=== PATIENT | male | born 1985 | race Caucasian/White ===

== ENCOUNTER → 2017-09-28 15:56 | Outpatient (CLI) | payer OTHER, SELFPAY | PROVIDERS: PCP Physician Assistant; Visit Provider Urology | DX: Z53.9 Procedure and treatment not carried out, unspecified reason (principal) ==

== ENCOUNTER → 2018-08-03 10:16 | Outpatient (CLI) | payer OTHER, SELFPAY ==
[2018-08-03 11:13] LABS: Add Manual Diff / Slide Review NO; Basophils Absolute Auto 0 /uL (0-100); Basophils Percent Auto 0.6 % (0-2); Eosinophils Absolute Auto 100 /uL (0-450); Eosinophils Percent Auto 1.1 % (2-4); Hematocrit 46.1 % (41-53); Hemoglobin 15.8 g/dL (13.5-17.5); Lymphocytes Absolute Auto 2000 /uL (1100-4500); Lymphocytes Percent Auto 33.8 % (25-40); Mean Corpuscular HGB Conc 34.3 % (30-36); Mean Corpuscular Hemoglobin 30.3 PG (26-34); Mean Corpuscular Volume 88.3 fL (80-100); Monocytes Absolute Auto 600 /uL (0-900); Monocytes Percent Auto 9.6 % (3-14); Neutrophils Absolute Auto 3300 /uL (1500-7000); Neutrophils Percent Auto 54.9 % (50-75); Platelet Count 205 X10^3/uL (150-400); Red Blood Cell Count 5.22 X10^6/uL (4.5-5.9); Red Cell Distribution Width 12.8 % (11.6-14.8)
[2018-08-03 11:24] LABS: Appearance Urine UA CLEAR; Bilirubin Urine UA NEGATIVE (NEGATIVE); Color Urine UA YELLOW; Glucose Urine UA NEGATIVE (Negative); Ketones Urine UA NEGATIVE (NEGATIVE); Leukocyte Esterase Urine UA NEGATIVE (NEGATIVE); Nitrite Urine UA NEGATIVE (Negative); Occult Blood Urine UA NEGATIVE (Negative); Protein Urine UA NEGATIVE (Negative); Urobilinogen Urine UA 0.2 E.U./dL (0.2); pH Urine UA 6.5 (4.5-8.0)
[2018-08-03 11:29] LABS: Alanine Aminotransferase 48 IU/L (21-72); Albumin 4.6 g/dL (3.5-5.0); Albumin Globulin Ratio 1.6 (1.0-2.8); Alkaline Phosphatase 60 U/L (38-126); Aspartate Aminotransferase 47 IU/L (17-59); Bilirubin Total 1.1 mg/dL (0.2-1.3); Blood Urea Nitrogen 22 mg/dL (9-20); Calcium 9.7 mg/dL (8.4-10.2); Carbon Dioxide 30 mmol/L (22-32); Chloride 101 mmol/L (98-107); Cholesterol 149 mg/dL (140-199); Estimated Glomerular Filt Rate > 60.0 mL/min (>60); Globulin 2.9 g/dL (1.7-4.1); Glucose 93 mg/dL (70-100); HDL Cholesterol 34 mg/dL (40-60); HEMOLYSIS < 15 (0-50); LDL Cholesterol Calculated 85 mg/dL (<100); Potassium 4.3 mmol/L (3.4-5.1); Sodium 141 mmol/L (137-145); Total Protein 7.5 g/dL (6.3-8.2); Triglycerides 149 mg/dL (35-150)
[2018-08-03 12:47] LABS: Thyroid Stimulating Hormone 1.08 uIU/mL (0.47-4.68)
== END ==
PROVIDERS: Family Provider Internal Medicine Endocrinology, Diabetes & Metabolism; Visit Provider Family Medicine
DX: E34.9 Endocrine disorder, unspecified (principal); I10 Essential (primary) hypertension
CPT/HCPCS: 36415; 80053; 80061; 81003; 84403; 84443; 85025

== ENCOUNTER → 2018-08-06 08:17 | Outpatient (CLI) | payer OTHER, SELFPAY ==
[2018-08-06 09:12] LABS: Luteinizing Hormone 4.44 mIU/mL
[2018-08-06 09:13] LABS: Prolactin 9.4 ng/mL (3.7-17.9)
[2018-08-06 10:15] LABS: Transferrin 236 mg/dL (206-381)
[2018-08-09 09:54] LABS: Sex Hormone Binding Globulin 18 nmol/L (10-50); Testosterone, Bioavailable 145.5 ng/dL (110.0-575.0); Testosterone, Total 337 ng/dL (250-1100); Testosterone,Free 65.2 pg/mL (46.0-224.0)
[2018-08-12 14:16] LABS: Albumin 4.9
== END ==
PROVIDERS: Family Provider Internal Medicine Endocrinology, Diabetes & Metabolism; Visit Provider Internal Medicine Endocrinology, Diabetes & Metabolism
DX: E29.1 Testicular hypofunction (principal)
CPT/HCPCS: 36415; 82040; 83002; 84146; 84270; 84403; 84466

== ENCOUNTER 2019-11-27 19:25 | Emergency (ER) | payer OTHER, SELFPAY ==
[2019-11-27 19:41] VITALS: BP 144/100; PULSE 98; RESP 20; O2SAT 99; BMI 28.4
--- NOTE | 2019-11-27 19:45 | DI.RAD.S_ITS ---
PROCEDURE: XR ANKLE RT MIN 3V INDICATIONS: ankle pain TECHNIQUE: 3 views of the ankle were acquired. COMPARISON: None. FINDINGS: Bones: No fractures or dislocations. Ankle mortise is normally aligned. No suspicious bony lesions. Soft tissues: No tibiotalar joint effusion. Achilles tendon appears normal. IMPRESSION: No trauma found. Dictated by: Pradeep Naik M.D. on 11/27/2019 at 20:06 Approved by: Pradeep Naik M.D. on 11/27/2019 at 20:07
--- NOTE | 2019-11-27 19:45 | DI.RAD.S_ITS ---
PROCEDURE: XR KNEE RT 3V INDICATIONS: ankle and knee pain TECHNIQUE: 3 views of the knee were acquired. COMPARISON: None. FINDINGS: Bones: No fractures or dislocations. No suspicious bony lesions. Soft tissues: No joint effusion. No suspicious soft tissue calcifications. IMPRESSION: Normal for age, source of current knee pain symptoms is not seen. Dictated by: Pradeep Naik M.D. on 11/27/2019 at 20:06 Approved by: Pradeep Naik M.D. on 11/27/2019 at 20:06
[2019-11-27] MEDS: IBUPROFEN 400 MG TABLET 800 MG PO (21:38)
[2019-11-27] MEDS: ACETAMINOPHEN 325 MG TABLET 650 MG PO (21:39)
--- NOTE | 2019-11-27 22:06 | ED.LOWEXIN ---
HPI - Extremity Injury (Lower) <CORRIE Galvan-BC - Last Filed: 11/27/19 22:12> General Chief Complaint: Extremity Injury, Lower Stated Complaint: RIGHT LEG AND KNEE INJURY Time Seen by Provider: 11/27/19 21:32 Source: patient Mode of arrival: Ambulatory Limitations: physical limitation History of Present Illness HPI Narrative: The patient is a 34-year-old male nonsmoker with history of hypertension who presents with a chief complaint of right knee and ankle pain. He was running down a hill, felt an instability in his knee and then his ankle. He felt pops and cracks in his knee. He then rolled outward. He denies any recent history of injuries to his knee. He denies any history of injuries to his ankle. He has not taken anything for pain prior to arrival to the emergency department. He denies any his head, any neck or back pain. He states that this is an isolated knee and ankle injury. Related Data Home Medications Medication Instructions Recorded Confirmed multivitamin [Multiple Vitamins] 1 tab PO BID #0 02/04/17 06/01/18 testosterone cypionate 200 mg/mL 200 mg IM MONTHLY ml 06/01/18 06/01/18 intramuscular oil Previous Rx's Medication Instructions Recorded Syringes syr #30 06/11/17 [place] box #30 08/31/17 meloxicam 15 mg tablet 15 mg PO QDAY #90 tab 06/01/18 losartan 100 mg tablet 100 mg PO QDAY #90 tab 02/15/19 Allergies Allergy/AdvReac Type Severity Reaction Status Date / Time No Known Allergies Allergy Uncoded 11/27/19 19:45 Review of Systems <PATRICIA Galvan - Last Filed: 11/27/19 22:12> Review of Systems Narrative: GENERAL: Denies chills, fatigue, malaise, fever, sweats. HEENT: Denies sinus pain, ear pain, sore throat, difficulty swallowing, dizziness. RESPIRATORY: Denies dyspnea, cough, wheezing, hemoptysis, sputum. CARDIOVASCULAR: Denies chest pain, palpitations, orthopnea, edema, GASTROINTESTINAL: Denies nausea, vomiting, abdominal pain, diarrhea, constipation, melena. : Denies dysuria, frequency, incontinence, hematuria, urinary retention. MUSCULOSKELETAL: See HPI SKIN: Denies rash, skin lesions, or other NEUROLOGIC: Denies weakness, headache, numbness, change in speech, confusion, seizures, incoordination. PSYCHIATRIC: No concerning psychosocial issues. 12 point review of systems is negative except for those stated above Patient History <FREDO GalvanMATT - Last Filed: 11/27/19 22:12> Family History (Updated 01/11/17 @ 00:00 by Conversion Provider) Mother Age: 60 Cancer Hypertension Social History Smoking Status: Never smoker second hand exposure: Yes (At work) alcohol intake: current (a couple beers a week) substance use type: does not use Smoking Status: Never smoker Exam <CORRIE GalvanSTAR - Last Filed: 11/27/19 22:12> Narrative Exam Narrative: GENERAL: This is a well-nourished, well-developed patient, no acute distress HEAD: Atraumatic. Normocephalic. No temporal or scalp tenderness. EYES: Pupils equal round and reactive. Extraocular motions intact. No scleral icterus. No injection or drainage. ENT: Nose without bleeding, purulent drainage or septal hematoma. Uvula midline. Airway patent. NECK: Trachea midline. No JVD or lymphadenopathy. Supple, nontender, no meningeal signs. CARDIOVASCULAR: Regular rate and rhythm RESPIRATORY: No cough. No increased respiratory effort. No accessory muscle use. GASTROINTESTINAL: Abdomen soft, non-tender, nondistended. No hepato-splenomegaly, or palpable masses. No guarding. EXTREMITIES: Pain to palpation superior to right knee. Able to flex to 90?. Pain on varus and valgus. Negative anterior posterior drawer. Pain to palpation distance to lateral malleolus and medial malleolus of right ankle. Positive pedal pulses. Capillary refill less than 2 seconds all toes right foot. BACK: Nontender without deformity or crepitance. No flank tenderness. NEURO: AOx3. SKIN: No rash or erythema on visible skin. No erythema ecchymosis laceration or abrasion on right knee or ankle. Initial Vital Signs Initial Vital Signs: Vital Signs Pulse Rate 98 H 11/27/19 19:41 Respiratory Rate 20 11/27/19 19:41 Blood Pressure 144/100 H 11/27/19 19:41 Pulse Oximetry 99 11/27/19 19:41 <Joel Guerrier MD - Last Filed: 11/28/19 02:59> Initial Vital Signs Initial Vital Signs: Vital Signs Pulse Rate 98 H 11/27/19 19:41 Respiratory Rate 20 11/27/19 19:41 Blood Pressure 144/100 H 11/27/19 19:41 Pulse Oximetry 99 11/27/19 19:41 Course <PATRICIA Galvan - Last Filed: 11/27/19 22:12> Orders Ordered: ED Orders 11/27/19 19:45 XR ankle RT min 3V Stat XR knee RT 3V Stat Discontinued Medications Acetaminophen (Tylenol) 650 mg PO NOW ONE Stop: 11/27/19 21:35 Last Admin: 11/27/19 21:39 Dose: 650 mg Documented by: EWA Ibuprofen (Advil) 800 mg PO NOW ONE Stop: 11/27/19 21:35 Last Admin: 11/27/19 21:38 Dose: 800 mg Documented by: EWA Vital Signs Vital signs: Vital Signs - 8 hr 11/27/19 19:41 11/27/19 22:17 Pulse Rate 98 H 68 Respiratory Rate 20 16 Blood Pressure 144/100 H 136/70 Pulse Oximetry 99 97 <Joel Guerrier MD - Last Filed: 11/28/19 02:59> Orders Ordered: ED Orders 11/27/19 19:45 XR ankle RT min 3V Stat XR knee RT 3V Stat Discontinued Medications Acetaminophen (Tylenol) 650 mg PO NOW ONE Stop: 11/27/19 21:35 Last Admin: 11/27/19 21:39 Dose: 650 mg Documented by: EWA Ibuprofen (Advil) 800 mg PO NOW ONE Stop: 11/27/19 21:35 Last Admin: 11/27/19 21:38 Dose: 800 mg Documented by: EWA Vital Signs Vital signs: Vital Signs - 8 hr 11/27/19 19:41 11/27/19 22:17 Pulse Rate 98 H 68 Respiratory Rate 20 16 Blood Pressure 144/100 H 136/70 Pulse Oximetry 99 97 MDM - Extremity Injury (Lower) <PATRICIA Galvan - Last Filed: 11/27/19 22:12> Imaging Data Extremity x-ray #1: Radiologist's Impression: [address] [place] [place] [id number] XRay Report Signed Patient: Kenneth Cullen HMR#: [id number] : 1985Acct:[id number] Age/Sex: 34 / MDate of Service: 11/27/19 Loc: ED Accession Number: [id number] Procedure: XR knee RT 3V Ordering Provider: Joel Guerrier MD PROCEDURE: XR KNEE RT 3V INDICATIONS: ankle and knee pain TECHNIQUE: 3 views of the knee were acquired. COMPARISON: None. FINDINGS: Bones: No fractures or dislocations. No suspicious bony lesions. Soft tissues: No joint effusion. No suspicious soft tissue calcifications. IMPRESSION: Normal for age, source of current knee pain symptoms is not seen. Dictated by: Pradeep Naik M.D. on 11/27/2019 at 20:06 Approved by: Pradeep Naik M.D. on 11/27/2019 at 20:06 Extremity x-ray #2: Radiologist's Impression: [address] [address] XRay Report Signed Patient: Kenneth Cullen HMR#: [id number] : 1985Acct:[id number] Age/Sex: 34 / MDate of Service: 11/27/19 Loc: ED Accession Number: [id number] Procedure: XR ankle RT min 3V Ordering Provider: Joel Guerrier MD PROCEDURE: XR ANKLE RT MIN 3V INDICATIONS: ankle pain TECHNIQUE: 3 views of the ankle were acquired. COMPARISON: None. FINDINGS: Bones: No fractures or dislocations. Ankle mortise is normally aligned. No suspicious bony lesions. Soft tissues: No tibiotalar joint effusion. Achilles tendon appears normal. IMPRESSION: No trauma found. Dictated by: Pradeep Naik M.D. on 11/27/2019 at 20:06 Approved by: Pradeep Naik M.D. on 11/27/2019 at 20:07 [facility] Narrative Medical decision making narrative: The patient is a 34-year-old male who presents with a chief complaint of right ankle and knee pain. He has negative x-rays, seen medically stable and neurovascularly intact. He is able to ambulate, does not want any pain medicine other than ibuprofen. Somewhat complicated follow-up given that the patient is supposed to have meetings down at [facility] tomorrow, but I discussed at length light duty, rest ice compression elevation as well as aonr-egy-dudxecw pain medications as needed and able. The patient may need further imaging and/or physical therapy. I discussed at length the importance of following up with primary care provider as well as coming back to the emergency department for any acute concerns. Patient has no questions or concerns upon discharge and states understanding return precautions as well as follow-up care. Discharge Plan Departure Patient Disposition: Home Clinical Impression: Acute right ankle pain, Acute pain of right knee Discharge Date/Time: 11/27/19 22:18 Instructions: DI for Knee Sprain, How To Perform RICE (Rest, Ice, Compress, Elevate), DI for Ankle Pain, DI for Knee Pain Activity Restrictions/Additional Instructions: thank you for trusting us with your care today. I am sorry your injured and which you a speedy recovery. As I discussed, your x-ray shows no acute fracture. This does not rule out a soft tissue injury such as a ligament or tendon injury. It is important that you follow up with primary care provider, especially if worsening or no improvement. There can be fractures that did not show up on initial x-ray. Please use rest ice compression elevation as well as roik-xfi-yhxdqil pain medications as needed and able. I have given you a note for light duty. I have given you contact information [facility] resource management specialist, who can help you identify primary care provider as well as contact information for [facility]. You may benefit from further imaging and physical therapy Please come back to emergency department for any acute concerns Prescriptions: No Action meloxicam 15 mg tablet 15 mg PO QDAY Qty: 90 RF: 1 testosterone cypionate 200 mg/mL oil 200 mg IM MONTHLY RF: 0 multivitamin [Multiple Vitamins] 1 EACH tablet 1 tab PO BID Qty: 0 RF: 0 Syringes Qty: 30 RF: 0 [place] Qty: 30 RF: 0 losartan 100 mg tablet 100 mg PO QDAY Qty: 90 RF: 0 Referrals: [facility] [Provider Group] [facility] [Outside] Stand Alone Forms: Work Release Note
[2019-11-27 22:17] VITALS: BP 136/70; PULSE 68; RESP 16; O2SAT 97
== END 2019-11-27 22:18 | disposition home or self-care (01) ==
PROVIDERS: Emergency Provider Nurse Practitioner Family; Family Provider Internal Medicine Endocrinology, Diabetes & Metabolism
DX: M25.571 Pain in right ankle and joints of right foot (principal); M25.561 Pain in right knee; I10 Essential (primary) hypertension
CPT/HCPCS: 73562; 73610; 99283

== ENCOUNTER → 2020-03-05 09:44 | Outpatient (CLI) | payer OTHER, SELFPAY ==
[2020-03-05 10:28] LABS: Hemoglobin A1C% w Est Avg Glu 4.8 % (4.0-6.0)
[2020-03-05 10:32] LABS: Hematocrit 43.8 % (41-53); Hemoglobin 14.6 g/dL (13.5-17.5); Mean Corpuscular HGB Conc 33.3 % (30-36); Mean Corpuscular Hemoglobin 29.8 PG (26-34); Mean Corpuscular Volume 89.5 fL (80-100); Platelet Count 174 X10^3/uL (150-400); Red Cell Distribution Width 12.4 % (11.6-14.8); White Blood Cell Count 4.3 X10^3/uL (4.5-11.0)
[2020-03-05 10:48] LABS: Alanine Aminotransferase 26 IU/L (<50); Albumin 4.4 g/dL (3.5-5.0); Albumin Globulin Ratio 1.6 (1.0-2.8); Alkaline Phosphatase 63 U/L (38-126); Aspartate Aminotransferase 27 IU/L (17-59); BUN Creatinine Ratio 15.5 (6-22); Bilirubin Total 0.6 mg/dL (0.2-1.3); Blood Urea Nitrogen 18 mg/dL (9-20); Calcium 9.5 mg/dL (8.4-10.2); Carbon Dioxide 30 mmol/L (22-32); Chloride 107 mmol/L (98-107); Cholesterol 120 mg/dL (140-199); Creatinine Urine Random 252.2 mg/dL; Estimated Glomerular Filt Rate > 60.0 mL/min (>60); Globulin 2.7 g/dL (1.7-4.1); Glucose 96 mg/dL (70-100); HDL Cholesterol 38 mg/dL (40-60); HEMOLYSIS < 15 (0-50); LDL Cholesterol Calculated 70 mg/dL (<100); Potassium 4.3 mmol/L (3.4-5.1); Sodium 143 mmol/L (137-145); Total Protein 7.1 g/dL (6.3-8.2); Triglycerides 59 mg/dL (35-150)
[2020-03-05 10:52] LABS: Microalbumi Creatinin Ratio Ur 2.3 ug/mg CR (<30); Microalbumin Urine Random 0.6 mg/dL (0-1.6)
[2020-03-06 08:09] LABS: PSA, Total 0.3 ng/mL (0.0-4.0)
[2020-03-09 20:35] LABS: Percent Free Testosterone 3.34 % (1.50-4.20); Testosterone Free 14.23 ng/dL (5.00-21.00); Testosterone Total 425.9 ng/dL (264.0-916.0)
== END ==
PROVIDERS: Family Provider Internal Medicine Endocrinology, Diabetes & Metabolism; Referring Provider Family Medicine; Visit Provider Family Medicine
DX: E34.9 Endocrine disorder, unspecified (principal); I10 Essential (primary) hypertension
CPT/HCPCS: 36415; 80053; 80061; 82043; 82570; 83036; 84153; 84154; 84402; 84403; 85027

== ENCOUNTER → 2021-06-03 07:04 | Outpatient (CLI) | payer OTHER, SELFPAY ==
[2021-06-03 08:00] LABS: Add Manual Diff / Slide Review NO; Basophils Absolute Auto 0 /uL (0-100); Basophils Percent Auto 0.4 % (0-2); Eosinophils Absolute Auto 100 /uL (0-450); Eosinophils Percent Auto 0.8 % (2-4); Hemoglobin 14.7 g/dL (13.5-17.5); Lymphocytes Absolute Auto 1900 /uL (1100-4500); Lymphocytes Percent Auto 26.3 % (25-40); Mean Corpuscular HGB Conc 34.3 % (30-36); Mean Corpuscular Hemoglobin 30.3 PG (26-34); Mean Corpuscular Volume 88.4 fL (80-100); Monocytes Absolute Auto 500 /uL (0-900); Monocytes Percent Auto 7.4 % (3-14); Neutrophils Absolute Auto 4800 /uL (1500-7000); Neutrophils Percent Auto 65.1 % (50-75); Platelet Count 181 X10^3/uL (150-400); Red Blood Cell Count 4.87 X10^6/uL (4.5-5.9); Red Cell Distribution Width 12.4 % (11.6-14.8); White Blood Cell Count 7.3 X10^3/uL (4.5-11.0)
[2021-06-03 08:42] LABS: Prostate Specific Antigen Scrn 0.339 ng/mL (0.1-4.0)
[2021-06-07 08:01] LABS: Percent Free Testosterone 3.47 % (1.50-4.20); Testosterone Free 12.61 ng/dL (5.00-21.00); Testosterone Total 363.5 ng/dL (264.0-916.0)
== END ==
PROVIDERS: Family Provider Internal Medicine Endocrinology, Diabetes & Metabolism; PCP Family Medicine; Referring Provider Family Medicine; Visit Provider Family Medicine
DX: E34.9 Endocrine disorder, unspecified (principal); I10 Essential (primary) hypertension; Z12.5 Encounter for screening for malignant neoplasm of prostate
CPT/HCPCS: 36415; 84402; 84403; 85025; G0103

== ENCOUNTER → 2021-08-25 15:43 | Outpatient (CLI) | payer OTHER, SELFPAY ==
--- NOTE | 2021-08-25 15:45 | DI.MRI.S_ITS ---
PROCEDURE: MR HEAD/BRAIN WO CON INDICATIONS: chronic headaches and memory loss TECHNIQUE: Noncontrast axial T1 spin echo, axial T2 fast spin echo, sagittal and axial FLAIR, coronal T2 fast spin echo, axial gradient echo, axial diffusion and ADC through the brain. COMPARISON: None. FINDINGS: Image quality: Excellent. CSF Spaces: Basal cisterns are patent. No extra-axial fluid collections. Ventricles are normal in size and shape. Brain: Normal cerebral and cerebellar volume. Diffusion sequence unremarkable without acute infarct. There are several nonspecific white matter hyperintensities noted in the deep white matter. No subcortical or infratentorial hyperintensities. No evidence of acute hemorrhage or mass lesion. Skull and face: Calvarium has normal marrow signal. Orbits appear normal. Sinuses: Bilateral maxillary sinus retention cysts measure up to 2.3 cm IMPRESSION: 1. Nonspecific white matter multifocal hyperintensities. Differential includes early microvascular chronic ischemic change, migrainous vasculopathy, small vessel vasculitis, and also demyelinating disease such as multiple sclerosis. Approved by: Wolf Angeles M.D. on 08/25/2021 at 17:53
== END ==
PROVIDERS: Family Provider Internal Medicine Endocrinology, Diabetes & Metabolism; PCP Family Medicine; Referring Provider Family Medicine; Visit Provider Family Medicine
DX: R51.9 Headache, unspecified (principal); R90.82 White matter disease, unspecified; R41.3 Other amnesia; G89.29 Other chronic pain
CPT/HCPCS: 70551

== ENCOUNTER → 2021-09-25 15:23 | Outpatient (CLI) | payer OTHER, SELFPAY ==
--- NOTE | 2021-09-25 15:25 | DI.RAD.S_ITS ---
PROCEDURE: XR SHOULDER RT MIN 2V INDICATIONS: eval R shoulder pain TECHNIQUE: 3 views of the shoulder were acquired. COMPARISON: None. FINDINGS: Bones: No fractures or dislocations. No suspicious bony lesions. Visualized ribs appear intact. Soft tissues: No suspicious soft tissue calcifications. IMPRESSION: Right shoulder without acute fracture or dislocation. No significant degenerative changes seen. Dictated by: Jules Martin M.D. on 09/25/2021 at 16:38 Approved by: Jules Martin M.D. on 09/25/2021 at 16:38
== END ==
PROVIDERS: Family Provider Internal Medicine Endocrinology, Diabetes & Metabolism; PCP Family Medicine; Referring Provider Registered Nurse Diabetes Educator; Visit Provider Registered Nurse Diabetes Educator
DX: M25.511 Pain in right shoulder (principal); Z98.890 Other specified postprocedural states
CPT/HCPCS: 73030

== ENCOUNTER → 2021-10-15 13:06 | Outpatient (CLI) | payer OTHER, SELFPAY ==
--- NOTE | 2021-10-15 | DI.MRI.S_ITS ---
PROCEDURE: MR SHOULDER RT W CON INDICATIONS: RIGHT SHOULDER PAIN TECHNIQUE: After the administration of 12 mL of dilute intra-articular Gadolinium contrast, oblique coronal T1 and T2 spin echo with fat saturation, oblique sagittal T1 spin echo with and without fat saturation, oblique sagittal T2 fast spin echo with fat saturation, axial T1 spin echo with fat saturation through the shoulder. COMPARISON: None. FINDINGS: Image quality: Excellent. Rotator cuff: Tendinosis and low-grade articular and bursal surface partial thickness tear involving distal supraspinatus at its insertion on the humeral head is seen extending to musculotendinous junction. Distal infraspinatus and subscapularis tendons are intact. No full-thickness rotator cuff tendon rupture. No rotator cuff muscle atrophy on sagittal images. Bones and bursae: No bone marrow contusions or fractures. No acromioclavicular joint degeneration. The acromion demonstrates conventional anatomy, without an os acromiale. Capsule and soft tissues: Signal abnormality and contour irregularity involving superior anterior labrum at 12 to 2 o'clock position is seen suggestive of superior anterior labral tear. Subtle signal abnormality involving anterior inferior labrum with contrast extension is also seen suggestive of anterior-inferior labral tear at 5 to 6 o'clock position. glenohumeral ligaments appear intact. The long head of the biceps tendon demonstrates normal location and morphology. The rotator interval appears normal, without fibrosis. The coracohumeral ligament is of normal thickness. No intra-articular bodies. IMPRESSION: 1. Tendinosis and low-grade articular and bursal surface partial thickness tear involving distal supraspinatus extending to musculotendinous junction. No full-thickness rotator cuff tendon rupture. No muscle atrophy. 2. No marrow edema. No fracture or dislocation. No suspicious bony lesion. 3. Suggestion of superior anterior labral tear at 12 to 2 o'clock position and anterior-inferior labral tear at 5 to 6 o'clock position. Dictated by: Alessandro Daniel M.D. on 10/15/2021 at 16:37 Approved by: Alessandro Dainel M.D. on 10/15/2021 at 16:39
--- NOTE | 2021-10-15 | DI.RAD.S_ITS ---
PROCEDURE: FL SHOULDER INJECTION MR/CT RT INDICATIONS: RIGHT SHOULDER PAIN COMPARISON: None TECHNIQUE: The indications, alternatives, benefits, risks, and complications of the procedure were explained to the patient. Written informed consent was obtained and placed in the chart. The shoulder was examined fluoroscopically and a site for needle placement chosen for entry into the glenohumeral joint from an anterior approach. The skin was prepped and draped in a sterile fashion, and 1% lidocaine infiltrated from skin down to joint capsule. A spinal needle was inserted into the glenohumeral joint, and a small amount of iodinated contrast media injected to confirm intra-articular placement of the needle tip. This was followed by approximately 12 mL dilute solution of a gadolinium containing MR contrast agent. The needle was removed and a dressing was applied. The patient was given postprocedural instructions and sent to the MR suite for MR imaging. FINDINGS: A single fluoroscopic spot image demonstrates intra-articular location of injected iodinated contrast. IMPRESSION: Successful fluoroscopically guided administration of dilute Gadolinium solution into the shoulder joint for MR arthrogram. Dictated by: Seema Francis MD, PhD on 10/15/2021 at 16:40 Approved by: Seema Francis MD, PhD on 10/15/2021 at 16:40
== END ==
PROVIDERS: Family Provider Internal Medicine Endocrinology, Diabetes & Metabolism; PCP Family Medicine; Referring Provider Family Medicine; Visit Provider Registered Nurse Diabetes Educator
DX: M25.511 Pain in right shoulder (principal); M75.111 Incomplete rotator cuff tear or rupture of right shoulder, not specified as traumatic
CPT/HCPCS: 23350; 73222; 77002

== ENCOUNTER → 2024-07-11 14:44 | Outpatient (CLI) | payer OTHER, SELFPAY ==
[2024-07-11 15:38] LABS: Add Manual Diff / Slide Review NO; Basophils Absolute Auto 0 /uL (0-100); Basophils Percent Auto 0.5 % (0-2); Eosinophils Absolute Auto 100 /uL (0-450); Eosinophils Percent Auto 1.4 % (2-4); Hematocrit 43.4 % (41-53); Hemoglobin 14.9 g/dL (13.5-17.5); Lymphocytes Absolute Auto 2500 /uL (1100-4500); Lymphocytes Percent Auto 28.8 % (25-40); Mean Corpuscular HGB Conc 34.4 % (30-36); Mean Corpuscular Volume 87.1 fL (80-100); Monocytes Absolute Auto 700 /uL (0-900); Monocytes Percent Auto 7.7 % (3-14); Neutrophils Absolute Auto 5300 /uL (1500-7000); Neutrophils Percent Auto 61.6 % (50-75); Platelet Count 257 X10^3/uL (150-400); Red Blood Cell Count 4.98 X10^6/uL (4.5-5.9); Red Cell Distribution Width 12.5 % (11.6-14.8); White Blood Cell Count 8.6 X10^3/uL (4.5-11.0)
[2024-07-11 16:03] LABS: Alanine Aminotransferase 29 IU/L (<50); Albumin 4.9 g/dL (3.5-5.0); Albumin Globulin Ratio 1.8 (1.0-2.8); Alkaline Phosphatase 57 U/L (38-126); Aspartate Aminotransferase 33 IU/L (17-59); Bilirubin Total 0.8 mg/dL (0.2-1.3); Blood Urea Nitrogen 22 mg/dL (9-20); Carbon Dioxide 30 mmol/L (22-32); Chloride 101 mmol/L (98-107); Cholesterol 140 mg/dL (140-199); Estimated Glomerular Filt Rate > 60 mL/min (>60); Globulin 2.7 g/dL (1.7-4.1); Glucose 86 mg/dL (70-100); HDL Cholesterol 46 mg/dL (40-60); HEMOLYSIS < 15 (0-50); LDL Cholesterol Calculated 73 mg/dL (<100); Potassium 4.6 mmol/L (3.4-5.1); Sodium 140 mmol/L (137-145); Total Protein 7.6 g/dL (6.3-8.2); Triglycerides 103 mg/dL (35-150)
[2024-07-11 16:30] LABS: Prostate Specific Antigen Scrn 0.386 ng/mL (0.1-4.0)
[2024-07-11 16:34] LABS: TSH w/ Reflex to FT4 0.99 uIU/mL (0.47-4.68)
== END ==
PROVIDERS: Family Provider Internal Medicine Endocrinology, Diabetes & Metabolism; PCP Family Medicine; Referring Provider Family Medicine; Visit Provider Family Medicine
DX: I10 Essential (primary) hypertension (principal); E34.9 Endocrine disorder, unspecified; Z12.5 Encounter for screening for malignant neoplasm of prostate; R51.9 Headache, unspecified; G89.29 Other chronic pain; R41.3 Other amnesia; Z87.820 Personal history of traumatic brain injury
CPT/HCPCS: 36415; 80053; 80061; 84402; 84403; 84443; 85025; G0103

== ENCOUNTER → 2024-08-01 18:40 | Outpatient (CLI) | payer OTHER, SELFPAY ==
--- NOTE | 2024-08-01 18:43 | DI.MRI.S_ITS ---
PROCEDURE: MR HEAD/BRAIN WO/W CON INDICATIONS: chronic headache, memory loss TECHNIQUE: Noncontrast axial T1 spin echo, axial T2 fast spin echo, sagittal and axial FLAIR, coronal T2 fast spin echo, axial gradient echo, axial diffusion and ADC through the brain. After the administration of contrast, axial and coronal and sagittal 3D VIBE or T1 spin echo with fat saturation through the brain. COMPARISON: [facility], MR, MR HEAD/BRAIN WO CON, 08/25/2021, 15:52. FINDINGS: Image quality: Excellent. CSF Spaces: Basal cisterns are patent. No extra-axial fluid collections. Ventricles are normal in size and shape. Brain: Again seen are several nonspecific white matter hyperintensities within the deep white matter which demonstrate a perpendicular orientation from the ventricles. No midline shift. No intracranial bleeds or masses. No abnormal intracranial enhancement. The brainstem appears normal. Diffusion-weighted images demonstrate no acute infarct. No chronic ischemic insults. Normal intravascular flow voids are present. Skull and face: Calvarial marrow is normal in signal. Orbits appear normal. Sinuses: Maxillary sinus mucous retention cyst. The mastoids appear clear. IMPRESSION: Similar appearance of multifocal white matter hyperintensities which demonstrate an orientation which can be seen with a demyelinating process. Recommend clinical correlation. Other differentials include early chronic microvascular ischemic changes, migrainous vasculopathy or small vessel vasculitis. Otherwise, no acute intracranial abnormalities or abnormal intracranial enhancement. Dictated by: Elroy Morrison M.D. on 08/02/2024 at 8:30 Approved by: Elroy Morrison M.D. on 08/02/2024 at 8:38
== END ==
LOC: MRI 18:41
PROVIDERS: Family Provider Internal Medicine Endocrinology, Diabetes & Metabolism; PCP Family Medicine; Referring Provider Family Medicine; Visit Provider Family Medicine
DX: G89.29 Other chronic pain (principal); R51.9 Headache, unspecified; R41.3 Other amnesia
CPT/HCPCS: 70553; A9579

== ENCOUNTER → 2024-10-10 16:52 | Outpatient (CLI) | payer OTHER, SELFPAY ==
--- NOTE | 2024-10-10 16:54 | DI.RAD.S_ITS ---
PROCEDURE: XR ELBOW RT MIN 3V INDICATIONS: b/l elbow pain TECHNIQUE: 3 views of the elbow were acquired. COMPARISON: None. FINDINGS: Bones: There are no osseous abnormalities. Elbow joint: Normal in width and alignment without arthritic change. There are no effusions. Soft tissues: No soft tissue swelling, calcification or mass. IMPRESSION: Normal elbow Dictated by: Vipul Alvarez M.D. on 10/11/2024 at 10:27 Approved by: Vipul Alvarez M.D. on 10/11/2024 at 10:27
--- NOTE | 2024-10-10 16:54 | DI.RAD.S_ITS ---
PROCEDURE: XR ELBOW LT MIN 3V INDICATIONS: b/l elbow pain TECHNIQUE: 3 views of the elbow were acquired. COMPARISON: None. FINDINGS: Bones: There are no osseous abnormalities. Elbow joint: Normal in width and alignment without arthritic change. There are no effusions. Soft tissues: Heavy ossification of the triceps tendon insertion on the olecranon noted IMPRESSION: Heavy ossification of the triceps tendon insertion on the olecranon is likely stigmata of old trauma or inflammation. Remaining elbow normal Dictated by: Vipul Alvarez M.D. on 10/11/2024 at 10:26 Approved by: Vipul Alvarez M.D. on 10/11/2024 at 10:27
== END ==
PROVIDERS: Family Provider Internal Medicine Endocrinology, Diabetes & Metabolism; PCP Family Medicine; Referring Provider Orthopaedic Surgery; Visit Provider Orthopaedic Surgery
DX: M25.522 Pain in left elbow (principal); M25.521 Pain in right elbow; M67.824 Other specified disorders of tendon, left elbow
CPT/HCPCS: 73080